=== PATIENT | male | born 1955 | race Caucasian/White ===

== ENCOUNTER 2024-10-07 18:32 | Emergency (ER) | payer MEDICARE, BC ==
[~2024-10-07] VITALS: Ht 172.7 cm; Wt 83.9 kg
[~2024-10-07 18:32] MED LIST: CENTRUM SILVER1 EAC2 PO; FISH OIL; PROBIOTIC
[2024-10-07 19:02] LABS: BASOPHILS ABSOLUTE AUTO 0.05 K/mm3 (0.00-0.23); BASOPHILS PERCENT AUTO 1 % (0-2); EOSINOPHILS ABSOLUTE AUTO 0.19 K/mm3 (0.00-0.68); EOSINOPHILS PERCENT AUTO 2 % (0-6); Hematocrit 47.8 % (37.0-53.0); Hemoglobin 16.3 g/dL (13.5-17.5); IMMATURE GRAN ABSOLUTE AUTO 0.03 K/mm3 (0.00-0.10); IMMATURE GRAN PERCENT AUTO 0 % (0-1); LYMPHOCYTES ABSOLUTE AUTO 1.51 K/mm3 (0.84-5.20); LYMPHOCYTES PERCENT AUTO 16 % (21-46); MONOCYTES ABSOLUTE AUTO 0.55 K/mm3 (0.16-1.47); MONOCYTES PERCENT AUTO 6 % (4-13); Mean Corpuscular HGB Conc 34.1 g/dL (31.5-36.5); Mean Corpuscular Volume 95 fL (80-100); NEUTROPHILS ABSOLUTE AUTO 6.86 K/mm3 (1.96-9.15); NEUTROPHILS PERCENT AUTO 75 % (41-73); NRBC ABSOLUTE 0.00 K/mm3 (0.00-0.02); NRBC Auto 0.0 /100 WBC (0.0-0.2); Platelet Count 285 K/mm3 (150-400); RDW Coefficient Variation 12.9 % (11.7-14.2); RDW Standard Deviation 45.4 fL (35.1-46.3)
[2024-10-07 19:29] LABS: Alanine Aminotransfer (ALT/SGP 44.0 U/L (12-78); Albumin, Blood 3.5 g/dL (3.4-5.0); Albumin/Globulin Ratio 0.9 (0.8-1.8); Anion Gap 5.0 mmol/L (3-11); Aspartate Aminotrans (AST/SGOT 39.0 U/L (12-37); Bilirubin, Total 0.7 mg/dL (0.1-1.0); Blood Urea Nitrogen 21.0 mg/dL (8-24); CO2, Blood 27.0 mmol/L (21-32); Calcium, Blood 8.8 mg/dL (8.5-10.1); Chloride, Blood 109.0 mmol/L (98-108); Creatinine, Blood 1.05 mg/dL (0.60-1.20); Globulin, Blood 3.9 g/dL (2.2-4.0); Glucose, Blood 112.0 mg/dL (70-99); Potassium, Blood 4.2 mmol/L (3.5-5.5); Sodium, Blood 137.0 mmol/L (136-145); Total Protein, Blood 7.4 g/dL (6.4-8.2)
[2024-10-07 20:13] VITALS: BP 158/96
== END 2024-10-07 21:10 | disposition home or self-care (01) ==
LOC: ER 18:32
PROVIDERS: Physician Assistant
DX: Z03.8 Encounter for observation for other suspected diseases and conditions ruled out (principal); Z90.49 Acquired absence of other specified parts of digestive tract; Z90.89 Acquired absence of other organs
CPT/HCPCS: 80053; 85025; 93005; 93010; 99283-25

== ENCOUNTER 2024-10-26 08:47 | Day surgery (SDC) | payer MEDICARE, BC ==
[~2024-10-26] VITALS: Ht 172.7 cm; Wt 86.0 kg
[~2024-10-26 08:47] MED LIST changes: +NS 500 ML IV ONE
[2024-10-26] MEDS ORDERED: CeFAZolin Sodium 2,000 MG VIAL ONE (09:03)
[2024-10-26] MEDS ORDERED: VYNDAMAX61 MG PO (09:06)
[2024-10-26] MEDS ORDERED: LOSARTAN POTASS25 M2 PO (09:06)
[2024-10-26] MEDS ORDERED: JARDIANCE10 MG PO (09:06)
[2024-10-26] MEDS ORDERED: TADALAFIL5 M1 PO (09:06)
[2024-10-26] MEDS ORDERED: FUROSEMIDE20 MG PO (09:06)
[2024-10-26] MEDS ORDERED: TRAZ100 PO (09:07)
[2024-10-26] MEDS ORDERED: IBUP200 PO (09:09)
[2024-10-26] MEDS ORDERED: NS 500 ML IV ONE (09:20)
--- NOTE | 2024-10-26 09:23 | NUR ---
10/26/24 0923 Hayley Barillas TIME OUT PERFORMED AT BEDSIDE AT [address] RAMOS IMMEDIATELY PRIOR TO INJECTION OF 4ML OF SOLUTION CONSISTING OF 9ML 1% LIDOCAINE W/EPI [id number] AND 1ML 8.4% SODIUM BICARBONATE. PT TOLERATED PROCEDURE WELL.
[2024-10-26 09:55] VITALS: BP 139/83
--- NOTE | 2024-10-26 10:14 | NUR ---
10/26/[address] IN AT BEDSIDE. SPEAKING WITH PT
== END 2024-10-26 10:20 | disposition home or self-care (01) ==
LOC: ORSCSDS 08:47
PROVIDERS: Orthopaedic Surgery
PROC: 0JU Subcutaneous Tissue and Fascia, Supplement (ICD-10-PCS; principal; 2024-10-26 10:30)
PROC: 01N50ZZ Release Median Nerve, Open Approach (ICD-10-PCS; principal; 2024-10-26 10:30)
DX: G56.01 Carpal tunnel syndrome, right upper limb (principal); I10 Essential (primary) hypertension; I50.9 Heart failure, unspecified; E78.5 Hyperlipidemia, unspecified; Z79.899 Other long term (current) drug therapy
CPT/HCPCS: 88304; 88313; J0690; J2704; J7040

== ENCOUNTER 2025-03-17 07:17 | Day surgery (SDC) | payer MEDICARE, BC ==
[~2025-03-17] VITALS: Ht 172.7 cm; Wt 85.6 kg
[2025-03-17] VITALS (14 sets, daily range): BP systolic 120–159; BP diastolic 81–103
[~2025-03-17 07:17] MED LIST changes: +FUROSEMIDE20 MG PO; +IBUP200 PO; +JARDIANCE10 MG PO; +LOSARTAN POTASS25 M2 PO; -NS 500 ML IV ONE; +TADALAFIL5 M1 PO; +TRAZ100 PO; +VYNDAMAX61 MG PO; +[UNRECOGNIZED DRUG - OTHER]
--- NOTE | 2025-03-17 07:44 | NUR ---
Ambulatory in Day Surgery. History, Chart, Medications and Allergies reviewed before start of procedure. Patient confirms NPO status and agrees with scheduled surgery. Pre-Op teaching done. Pt verbalizes understanding. Patient States Post-Procedure ride home has been arranged. Pt belongings placed underneath [facility] for safekeeping.
--- NOTE | 2025-03-17 08:21 | NUR ---
03/17/25 0821 Honorio Parker CONFIRMED AND REVIEWED H&P, MEDCICATIONS, ALLERGIES, MEDICAL HISTORY, RESPIRATORY HISTORY, VITAL SIGNS, 3-LEAD EKG, CONSENTS, AND PHYSICIAN ORDERS. PATIENT CONFIRMS NPO STATUS AND AGREES WITH SCHEDULED PROCEDURE. MONITOR INTACT WITH CONTINUOUS PULSE OXIMETRY, CAPNOGRAPHY, 3-LEAD EKG, INTERMITTENT BP. SUPPLEMENTAL O2 TO BE TITRATED THROUGHOUT PROCEDURE TO MAINTAIN O2 SATURATION ABOVE 90%. PATIENT DETERMINED TO BE ASA APPROPRIATE FOR PROPOFOL SEDATION PRIOR TO START OF PROCEDURE BY DR. ALEXANDER.
--- NOTE | 2025-03-17 09:02 | NUR ---
Patient up to Ambulate independently. Gait steady. Discharge instructions reviewed with patient. Patient verbalizes understanding. Copy given to patient to take home, [facility]. Patient States Post-Procedure ride home has been arranged. Discharged via wheelchair to private car for ride home. PT TOLERATING PO. REPORTS READY TO GO HOME. PER DR CATHERINE WILSON/4 YEARS.
== END 2025-03-17 09:02 | disposition home or self-care (01) ==
LOC: ORSCMMR 07:17 → ORD 08:15 → ORSCMMR 08:15
PROVIDERS: Internal Medicine Gastroenterology
PROC: 0DBL8ZX Excision of Transverse Colon, Via Natural or Artificial Opening Endoscopic, Diagnostic (ICD-10-PCS; principal; 2025-03-17 08:15)
DX: Z12.11 Encounter for screening for malignant neoplasm of colon (principal); D12.3 Benign neoplasm of transverse colon; Z86.0100 Personal history of colon polyps, unspecified; E85.9 Amyloidosis, unspecified; R00.1 Bradycardia, unspecified; Z95.0 Presence of cardiac pacemaker; Z79.84 Long term (current) use of oral hypoglycemic drugs; Z79.899 Other long term (current) drug therapy
CPT/HCPCS: 88305; J2704; J7120